=== PATIENT | female | born 1975 | race Caucasian/White ===

== ENCOUNTER → 2019-08-14 | Outpatient (CLI) | payer OTHER ==
[~2019-08-14] MED LIST: ACET-1600 PO; APIX5TAB PO; CYCL-259 PO; DEXA4TAB66 PO; HYDR-826 PO; MULT-658 PO; NICO-485 TD; NICO-486 TD; None per pt; ONDA4TAB13 SL; ONDA4TAB7 PO; OXYC-302 PO; OXYC-306 PO; PROC10TA2 PO
[2019-08-14 14:16] LABS: MEAN CORPUSCULAR HEMOGLOBIN 37.3 pg (27.0-34.8); MEAN CORPUSCULAR HGB CONC 33.6 g/dL (32.4-35.8); MEAN CORPUSCULAR VOLUME 111.1 fL (80-100); MEAN PLATELET VOLUME 6.9 fL (7.4-10.4); PLATELET COUNT 117 x10^3/uL (130-400); RED BLOOD COUNT 2.54 x10^6/uL (3.82-5.3); RED CELL DISTRIBUTION WIDTH 18.6 % (9.6-15.2)
[2019-08-14 14:27] LABS: ALANINE AMINOTRANSFERASE 22 U/L (12-78); ALBUMIN 3.6 g/dL (3.4-5.0); ANION GAP 6 mmol/L (5-15); CALCIUM 9.2 mg/dL (8.5-10.1); CHLORIDE 108 mmol/L (98-107); CREATININE 0.69 mg/dL (0.55-1.02)
[2019-08-14 14:29] LABS: ALKALINE PHOSPHATASE 128 U/L (45-117); BILIRUBIN,TOTAL 0.2 mg/dL (0.2-1.0); TOTAL PROTEIN 7.8 g/dL (6.4-8.2)
[2019-08-14 14:43] LABS: INTERNATIONAL NORMALIZED RATIO 0.98 (0.93-1.1); PROTHROMBIN TIME 10.3 Seconds (9.6-11.5)
[2019-08-14 15:16] LABS: MD YES
[2019-08-14 15:18] LABS: BAND#(MANUAL) 0.33 x10^3/uL; BANDS%(MANUAL) 6 % (0-7); EOS#(MANUAL) 0.17 x10^3/uL (0.0-0.4); EOS% (MANUAL) 3 % (1-7); LYMPH#(MANUAL) 1.38 x10^3/uL (1-3.4); LYMPHS% (MANUAL) 25 % (22-44); MONOS#(MANUAL) 0.61 x10^3/uL (0.3-2.7); MONOS% (MANUAL) 11 % (2-9); SEG#(MANUAL) 3.03 x10^3/uL (1.8-6.8); SEGS% (MANUAL) 55 % (42-75)
[2019-08-14 15:19] LABS: ANISOCYTOSIS 1+
[2019-08-14 15:20] LABS: <PLATELET ESTIMATE> DECREASED; <PLT MORPHOLOGY> NORMAL PLT MORPH
== END | disposition home or self-care (01) ==
LOC: STAR 13:03
PROVIDERS: ATTEND Specialist
DX: Z01.818 Encounter for other preprocedural examination (principal); C48.2 Malignant neoplasm of peritoneum, unspecified; C56.9 Malignant neoplasm of unspecified ovary; N83.291 Other ovarian cyst, right side; R19.09 Other intra-abdominal and pelvic swelling, mass and lump; F12.10 Cannabis abuse, uncomplicated; F17.200 Nicotine dependence, unspecified, uncomplicated; Z79.01 Long term (current) use of anticoagulants
CPT/HCPCS: 36415; 71046; 80053; 85025; 85610; 85730; 93005

== ENCOUNTER 2019-08-19 23:03 | Observation (INO) | payer MEDICAID, OTHER ==
[~2019-08-19] VITALS: Ht 162.6 cm; Wt 62.5 kg
[2019-08-19 13:37] VITALS: BP 125/84
[2019-08-19 14:03] LABS: HCG UR SG 1.021 (1.003-1.030)
[2019-08-19] MEDS: FENTANYL PF 100 MCG/2ML IV PRN ×2 (21:24→21:38)
[~2019-08-19 23:03] MED LIST changes: +ALBUTEROL/IPRATROPIUM 2.5MG/0.5MG, 3 ML NPPB PRN; +BUPIVACAINE/PF 0.25% ONE; +CEFOTETAN PMX 2GM/50ML 50 ML IV ONE; +DEXAMETHASONE 4 MG/ML, 1ML ONE; +EPINEPHRINE 1 MG/ML, 1ML ONE; +FENTANYL PF 100 MCG/2ML ONE; +FENTANYL PF 250 MCG/5ML ONE; +GABAPENTIN 300 MG CAPSULE PO ONE; +HYDROmorphone 1 MG/ML, 1ML INJ ONE; +HYDROmorphone 2 MG/ML, 1ML IVPush PRN; +LABETALOL 5MG/ML, 20ML IV PRN; +LACTATED RINGERS 1,000 ML IV SCH; +LIDOCAINE-MPF 2% ,5ML ONE; +MEPERIDINE/PF 100 MG/ML ONE; +MEPERIDINE/PF 25MG/ML,1ML IVPush PRN; +METHOCARBAMOL 1,000 MG in DEXTROSE 5% 100 ML IV PRN; +METOPROLOL 1 MG/ML, 5ML ONE; +MIDAZOLAM 1 MG/ML, 2ML ONE; -ONDA4TAB7 PO; +ONDANSETRON 2MG/ML, 2ML ONE; -OXYC-306 PO; +OXYcodone 5 MG/5 ML ORAL.SOL UDC ONE; +OXYcodone 5 MG/5 ML ORAL.SOL UDC PO PRN; +OxyconTIN ER 10 MG TAB.ER PO ONE; +PROMETHAZINE 25 MG/ML, 1ML IV PRN; +PROPOFOL 10 MG/ML, 20ML ONE; +ROCURONIUM 10MG/ML,5ML ONE; +SCOPOLAMINE PATCH, 1.5MG PATCH.TD72 TD ONE; +SUGAMMADEX 200 MG/2 ML IVPush ONE; +hydrALAzine 20 MG/ML, 1ML ONE
[2019-08-19] MEDS ORDERED: OXYC-306 PO (23:13)
[2019-08-19] MEDS ORDERED: ONDA4TAB7 PO (23:16)
[2019-08-19 23:30] VITALS: BP 115/80
== END 2019-08-20 00:47 | disposition home or self-care (01) ==
LOC: OUT 23:03 → 4NE 23:15 → OUT 23:55 → 4NE 23:55
PROVIDERS: ADMIT Specialist; ATTEND Specialist
DX: Z51.11 Encounter for antineoplastic chemotherapy (principal); C48.2 Malignant neoplasm of peritoneum, unspecified; F17.210 Nicotine dependence, cigarettes, uncomplicated; R97.1 Elevated cancer antigen 125 [CA 125]; N83.291 Other ovarian cyst, right side; Z79.01 Long term (current) use of anticoagulants; Z86.711 Personal history of pulmonary embolism
CPT/HCPCS: 36415; 58571; 81025; 86850; 86900; 86923; 88112; 88305; 88309; G0378; J0171; J0360; J1100; J1170; J2175; J2250; J2405; J2704; J2800; J3010; J3490; J7120; S2900; 88307

== ENCOUNTER 2019-08-20 05:14 | Emergency (ER) | payer OTHER ==
[~2019-08-20] VITALS: Ht 162.6 cm; Wt 64.8 kg
[~2019-08-20 05:14] MED LIST changes: -ALBUTEROL/IPRATROPIUM 2.5MG/0.5MG, 3 ML NPPB PRN; -BUPIVACAINE/PF 0.25% ONE; -CEFOTETAN PMX 2GM/50ML 50 ML IV ONE; -DEXAMETHASONE 4 MG/ML, 1ML ONE; -EPINEPHRINE 1 MG/ML, 1ML ONE; -FENTANYL PF 100 MCG/2ML ONE; -FENTANYL PF 250 MCG/5ML ONE; -GABAPENTIN 300 MG CAPSULE PO ONE; -HYDROmorphone 1 MG/ML, 1ML INJ ONE; -HYDROmorphone 2 MG/ML, 1ML IVPush PRN; -LABETALOL 5MG/ML, 20ML IV PRN; -LACTATED RINGERS 1,000 ML IV SCH; -LIDOCAINE-MPF 2% ,5ML ONE; -MEPERIDINE/PF 100 MG/ML ONE; -MEPERIDINE/PF 25MG/ML,1ML IVPush PRN; -METHOCARBAMOL 1,000 MG in DEXTROSE 5% 100 ML IV PRN; -METOPROLOL 1 MG/ML, 5ML ONE; -MIDAZOLAM 1 MG/ML, 2ML ONE; +ONDA4TAB7 PO; -ONDANSETRON 2MG/ML, 2ML ONE; +OXYC-306 PO; -OXYcodone 5 MG/5 ML ORAL.SOL UDC ONE; -OXYcodone 5 MG/5 ML ORAL.SOL UDC PO PRN; -OxyconTIN ER 10 MG TAB.ER PO ONE; -PROMETHAZINE 25 MG/ML, 1ML IV PRN; -PROPOFOL 10 MG/ML, 20ML ONE; -ROCURONIUM 10MG/ML,5ML ONE; -SCOPOLAMINE PATCH, 1.5MG PATCH.TD72 TD ONE; -SUGAMMADEX 200 MG/2 ML IVPush ONE; -hydrALAzine 20 MG/ML, 1ML ONE
--- NOTE | 2019-08-20 06:16 | NUR ---
PT C/O ABD PRESSURE/PAIN RADIATING TO BILAT SHOULDERS.
[2019-08-20 06:18] LABS: MEAN CORPUSCULAR HEMOGLOBIN 37.2 pg (27.0-34.8); MEAN CORPUSCULAR HGB CONC 33.2 g/dL (32.4-35.8); MEAN CORPUSCULAR VOLUME 111.9 fL (80-100); MEAN PLATELET VOLUME 6.9 fL (7.4-10.4); PLATELET COUNT 128 x10^3/uL (130-400); RED BLOOD COUNT 2.59 x10^6/uL (3.82-5.3); RED CELL DISTRIBUTION WIDTH 17.3 % (9.6-15.2)
[2019-08-20 06:33] LABS: ALBUMIN 3.5 g/dL (3.4-5.0); ANION GAP 7 mmol/L (5-15); CALCIUM 9.4 mg/dL (8.5-10.1); CHLORIDE 107 mmol/L (98-107)
[2019-08-20 06:36] LABS: ALANINE AMINOTRANSFERASE 22 U/L (12-78); ALKALINE PHOSPHATASE 122 U/L (45-117); BILIRUBIN,TOTAL 0.3 mg/dL (0.2-1.0); CREATININE 0.92 mg/dL (0.55-1.02); TOTAL PROTEIN 7.9 g/dL (6.4-8.2)
[2019-08-20 06:37] LABS: MICROSCOPIC NOT IND
[2019-08-20 06:38] LABS: CULTURE INDICATED? NO
--- NOTE | 2019-08-20 06:46 | NUR ---
PT TO CT WITH TECH AT THIS TIME.
--- NOTE | 2019-08-20 07:00 | NUR ---
REPORT RECEIVED FROM KACEY RN. PT TAKEN TO IMAGING AT THIS TIME, DENIES NEEDS, NAD NOTED
[2019-08-20] MEDS ORDERED: OMNIPAQUE 350 MG/ML, 100ML BOTTLE ONE (07:03)
[2019-08-20 07:08] LABS: BASOPHILS # (AUTO) 0.08 x10^3/uL (0-0.1); BASOPHILS % (AUTO) 1 % (0-1); EOSINOPHILS # (AUTO) 0.02 x10^3/uL (0-0.4); EOSINOPHILS % (AUTO) 0 % (1-7); LYMPHOCYTES # (AUTO) 0.44 x10^3/uL (1-3.4); LYMPHOCYTES % (AUTO) 7 % (22-44); MD MORPH REVIEW ONLY; MONOCYTES # (AUTO) 0.32 x10^3/uL (0.2-0.8); MONOCYTES % (AUTO) 5 % (2-9); NEUTROPHILS # (AUTO) 5.45 x10^3/uL (1.8-6.8); NEUTROPHILS % (AUTO) 86 % (42-75)
[2019-08-20 07:09] LABS: ANISOCYTOSIS 2+
[2019-08-20 07:10] LABS: <PLATELET ESTIMATE> DECREASED; <PLT MORPHOLOGY> NORMAL PLT MORPH; POLYCHROMASIA 1+; STOMATOCYTES 1+
[2019-08-20] MEDS ORDERED: OXYcodone/APAP 7.5/325MG TABLET PO ONE (07:30)
[2019-08-20] MEDS ORDERED: OXYcodone/APAP 7.5/325MG TABLET ONE (07:37)
--- NOTE | 2019-08-20 07:40 | NUR ---
PT MEDICATED FOR PAIN PER MAR, NO OTHER NEEDS AT THIS TIME
[2019-08-20 08:43] VITALS: BP 119/67
== END 2019-08-20 08:45 | disposition home or self-care (01) ==
LOC: ED 08:30
DX: D53.9 Nutritional anemia, unspecified (principal); K66.8 Other specified disorders of peritoneum; Z90.710 Acquired absence of both cervix and uterus
CPT/HCPCS: 36415; 71275; 74177; 80053; 81003; 83690; 85025; 93005; 99284; Q9967